=== PATIENT | female | born 1975 | race Caucasian/White ===

== ENCOUNTER 2019-06-10 16:20 | Observation (INO) ==
[2019-06-10] MEDS ORDERED: NS 1,000 ML IV ONE (19:30)
[2019-06-10 20:13] LABS: URINE SOURCE CLEAN CATCH
[2019-06-10 20:24] LABS: BILIRUBIN URINE NEGATIVE (NEGATIVE); BLOOD URINE TRACE (NEGATIVE); COLOR YELLOW; GLUCOSE URINE NEGATIVE (NEGATIVE); KETONE URINE NEGATIVE (NEGATIVE); LEUKOCYTES URINE NEGATIVE (NEGATIVE); NITRITE URINE POSITIVE (NEGATIVE); PH URINE 6.5; PROTEIN URINE TRACE mg/dL (NEGATIVE); SP GRAVITY URINE 1.018; TURBIDITY URINE HAZY (CLEAR); UROBILINOGEN URINE NORMAL (NORMAL)
[2019-06-10 20:25] LABS: UR EPITHELIAL CELLS <10 /HPF (<10); URINE BACTERIA 4+ /HPF; URINE RBC <10 /HPF (<10); URINE WBC <10 /HPF (<10)
[2019-06-10 20:30] LABS: BASO# 0.02 X1000 (0.0-0.2); BASO% 0.3 % (0.0-0.8); EOS# 0.13 X1000 (0.0-0.7); EOS% 2.1 % (0.0-10.0); HEMATOCRIT 39.5 % (37.0-47.0); HEMOGLOBIN 13.3 g/dL (12.0-16.0); LYMPH# 2.33 X1000 (1.2-3.4); LYMPH% 37.6 % (20.5-51.1); MCH 32.4 PG (27-31); MCHC 33.7 g/dL (33-37); MCV 96.1 FL (81-99); MONO% 6.5 % (1.7-9.3); MPV 9.6 FL (7.4-10.4); NEUT# 3.31 X1000 (1.4-6.5); NEUT% 53.5 % (42.2-75.2); PLT 245 X1000 (130-400); RBC 4.11 XMIL (4.2-5.4); RDW 15.3 % (11.5-14.5); WBC 6.19 X1000 (4.8-10.8)
[2019-06-10 20:50] LABS: ALB/GLOB RATIO 1.8; ALBUMIN 4.8 g/dL (3.5-5.0); CALCIUM 9.7 mg/dL (8.8-10.2); CREATININE 1.2 mg/dL (0.5-0.9); POTASSIUM 3.6 mmol/L (3.5-5.1); TOTAL BILIRUBIN 0.2 mg/dL (0.20-1.00); TOTAL PROTEIN 7.4 g/dL (6.3-8.3)
--- NOTE | 2019-06-10 21:09 | PROVIDER DOCUMENTATION ---
This chart was entered by Denise Chin Scribe, acting as scribe for Riley Waters MD. HPI-Rash/Wound/ReCheck - General Chief Complaint: Return/Recheck Stated Complaint: RETURN SEEN YESTERDAY HERE Time Seen by Provider: 06/10/19 19:18 Source: patient Allergies/Adverse Reactions: Allergies Allergy/AdvReac Type Severity Reaction Status Date / Time azithromycin [From Zithromax] Allergy Severe SWELLING Verified 06/09/19 11:01 codeine [Codeine] Allergy ITCHING Verified 06/09/19 11:01 buprenorphine HCl * AdvReac NAUSEA/VOMI Verified 06/09/19 11:01 [From Suboxone] TING naloxone HCl * AdvReac NAUSEA/VOMI Verified 06/09/19 11:01 [From Suboxone] TING Home Medications: Home Medication List Medication Instructions Recorded Confirmed Last Taken Type Levothyroxine Sodium 175 mcg PO DAILY 02/10/14 06/09/19 04/10/19 History Clonazepam [Klonopin] 1 mg PO BID 08/08/16 06/09/19 04/10/19 History Gabapentin [Neurontin] 800 mg PO TID 08/08/16 06/09/19 04/10/19 History Olanzapine [Zyprexa] 5 mg PO BID 08/08/16 06/09/19 04/10/19 History Umeclidinium Brm/Vilanterol Tr 1 each IH DAILY 08/08/16 06/09/19 04/10/19 History [Anoro Ellipta 62.5-25 Mcg INH] Triamcinolone Acetonide 15 gm TP 3-4XDAY PRN PRN 08/09/16 06/09/19 04/10/19 History Cyclobenzaprine [Flexeril] 5 mg PO TID #12 tablet 10/25/16 06/09/19 04/10/19 Rx Famotidine [Pepcid] 20 mg PO DAILY #30 tablet 10/25/16 06/09/19 04/10/19 Rx Hydrochlorothiazide 25 mg PO DAILY 10/25/16 06/09/19 04/10/19 History Ketorolac [Toradol] 10 mg PO Q6H PRN PRN #20 tablet 10/25/16 06/09/19 04/10/19 Rx Omeprazole [Prilosec] 20 mg PO DAILY #21 cap 11/20/17 06/09/19 04/10/19 Rx Ondansetron HCl [Zofran] 4 mg PO Q6HR PRN #12 tab 11/20/17 06/09/19 04/10/19 Rx Sucralfate [Carafate Liquid] 10 ml PO Q6HR #240 ml 11/20/17 06/09/19 04/10/19 Rx Sulfamethoxazole/Trimethoprim 2 ea PO BID #40 tab 03/07/19 06/09/19 04/10/19 Rx [Bactrim Ds Tablet] Losartan [Cozaar] 50 mg PO DAILY 06/09/19 06/09/19 04/10/19 History - History of Present Illness-Dermatology Nature of Presenting Problem: 44 yowf c/o recheck from yesterday, pt was dx w/rabdo and had to leave hospital to go home to care for a family member. pt is requesting tx. no other complaints. Onset/Duration: reports: other (yest) Timing: reports: still present Review of Systems - Adult - REVIEW OF SYSTEMS - ADULT Constitutional: reports: see HPI, other (rabdo dx yest, recheck today). denies: fever, fatique, night sweats Eyes: reports: no symptoms reported Ears, Nose, Mouth & Throat: reports: no symptoms reported Cardiovascular: reports: no symptoms reported Respiratory: reports: no symptoms reported Gastrointestinal: reports: no symptoms reported Genitourinary: reports: no symptoms reported Musculoskeletal: reports: no symptoms reported Integumentary: reports: no symptoms reported Neurological: reports: no symptoms reported Psychiatric: reports: no symptoms reported Endocrine: reports: no symptoms reported Hematologic/Lymphatic: reports: no symptoms reported Allergic/Immunologic: reports: no symptoms reported All Other Systems: Reviewed and Negative Past History - Adult - PAST MEDICAL HISTORY-ADULT Review of Records: reports: Nursing Assessment Review, Medications Reviewed, Social history reviewed & non-contributory. Major Childhood Illnesses: reports: denies history Cardiovascular: reports: cardiac disease, CHF, HTN Respiratory: reports: COPD Gastrointestinal: reports: denies history Obstetrical/Gynecological: reports: denies history Genitourinary: reports: denies history Musculoskeletal: reports: chronic pain, intervertebral disc disease, neck/back injury, other (fibromyalgia) Neurological: reports: CVA, Seizures/Epilepsy Psychiatric: reports: anxiety Endocrine/Immune: reports: thyroid disorder Other Conditions: reports: denies history - PRIOR SURGERIES/PROCEDURES Surgical/Procedure History: reports: hysterectomy, BTL, other (Emergency oophrectomy) - PRIOR HOSPITALIZATIONS Prior Hospitalizations: reports: for similar symptoms - IMMUNIZATION STATUS Childhood Immunizations: See Nurse Assessment Flu Vaccine: See Nurse Assessment - FAMILY HISTORY Family History: reviewed, not pertinent - SOCIAL HISTORY Smoking: cigarettes, less than 1 pack/day Provider spent 3-5 mins advising pt. on dangers of tobacco.: Discussed manners to quit use, and f/u contacts for add'l counseling. Substance Use: none presently/history of abuse (substance abuse hx), alcohol Alcohol Use Frequency: occasionally Physical Exam-General - PHYSICAL EXAM-ADULT Initial Vital Signs Reviewed: Yes - CONSTITUTIONAL General Appearance: appears well, alert, no apparent distress, obese. negative: lethargic, slow to respond, obtunded - EYES Eyes: PERRL/EOMI, pink conjunctivae - HEAD, EARS, NOSE, MOUTH & THROAT HENMT: normocephalic/atraumatic, moist mucous membranes - NECK Neck: non-tender, full range of motion, supple, normal inspection - RESPIRATORY Respiratory: chest non-tender, lungs clear, normal breath sounds - CARDIOVASCULAR Cardiovascular: normal peripheral pulses, regular rate, rhythm - GASTROINTESTINAL (ABDOMEN) Abdominal Exam: normal bowel sounds, non tender, soft - LYMPHATIC Lymphatic: no adenopathy - MUSCULOSKELETAL Back Exam: normal inspection, no CVA tenderness, no vertebral tenderness Extremity: normal range of motion, non-tender, normal inspection Peripheral Pulses: radial (R): 2+, radial (L): 2+ - SKIN Integumentary: normal color, normal turgor, warm/dry - NEUROLOGIC Neurologic: grossly normal, no motor/sensory deficits - PSYCHIATRIC Psych/Mental Status: normal mood/affect, normal thought content, normal thought process, oriented x 3 Progress - PLAN OF CARE/RESULTS Progress/Plan/Lab Results: Vital Signs - 8 hr 06/10/19 16:40 06/10/19 19:07 06/10/19 19:15 Temperature 98.1 F Pulse Rate 81 Respiratory Rate 18 Blood Pressure 167/111 191/128 O2 Sat by Pulse Oximetry 97 100 100 06/10/19 19:30 06/10/19 19:31 06/10/19 21:05 Temperature 98.3 F Pulse Rate 81 63 Respiratory Rate 18 18 Blood Pressure 173/138 177/115 O2 Sat by Pulse Oximetry 97 99 99 Laboratory Results - last 24 hr 06/10/19 06/10/19 06/10/19 20:04 20:04 20:04 WBC 6.19 RBC 4.11 L Hgb 13.3 Hct 39.5 MCV 96.1 MCH 32.4 H MCHC 33.7 RDW Std Deviation 15.3 H Plt Count 245 MPV 9.6 Neut % (Auto) 53.5 Lymph % (Auto) 37.6 Mcdonald % (Auto) 6.5 Eos % (Auto) 2.1 Baso % (Auto) 0.3 Neut # (Auto) 3.31 Lymph # (Auto) 2.33 Mcdonald # (Auto) 0.40 Eos # (Auto) 0.13 Baso # (Auto) 0.02 Sodium 138 Potassium 3.6 Chloride 98 Carbon Dioxide 27 Anion Gap 13 BUN 19 Creatinine 1.2 H Estimated GFR/1.73 m2 49 BUN/Creatinine Ratio 16 Glucose 87 Calculated Osmolality 277 Calcium 9.7 Total Bilirubin 0.20 AST 81 H ALT 43 H Alkaline Phosphatase 69 Creatine Kinase 4504 H Troponin T Total Protein 7.4 Albumin 4.8 Globulin 2.6 Albumin/Globulin Ratio 1.8 Urine Source CLEAN CATCH Urine Color YELLOW Urine Turbidity HAZY Urine pH 6.5 Ur Specific [place] 1.018 Urine Protein TRACE A Ur Glucose (Stick) NEGATIVE Ur Ketones (Stick) NEGATIVE Urine Blood TRACE A Urine Nitrite POSITIVE A Urine Bilirubin NEGATIVE Urobilinogen Dipstick NORMAL Urine Leukocytes NEGATIVE Urine WBC (Auto) <10 Urine RBC (Auto) <10 U Epithel Cells (Auto) <10 Urine Bacteria (Auto) 4+ 06/10/19 20:04 WBC RBC Hgb Hct MCV MCH MCHC RDW Std Deviation Plt Count MPV Neut % (Auto) Lymph % (Auto) Mcdonald % (Auto) Eos % (Auto) Baso % (Auto) Neut # (Auto) Lymph # (Auto) Mcdonald # (Auto) Eos # (Auto) Baso # (Auto) Sodium Potassium Chloride Carbon Dioxide Anion Gap BUN Creatinine Estimated GFR/1.73 m2 BUN/Creatinine Ratio Glucose Calculated Osmolality Calcium Total Bilirubin AST ALT Alkaline Phosphatase Creatine Kinase Troponin T 0.019 Total Protein Albumin Globulin Albumin/Globulin Ratio Urine Source Urine Color Urine Turbidity Urine pH Ur Specific [place] Urine Protein Ur Glucose (Stick) Ur Ketones (Stick) Urine Blood Urine Nitrite Urine Bilirubin Urobilinogen Dipstick Urine Leukocytes Urine WBC (Auto) Urine RBC (Auto) U Epithel Cells (Auto) Urine Bacteria (Auto) Orders Category Date Time Status CBC WITH ELECTRONIC DIFF [HEME] Stat Lab 06/10/19 20:04 Completed CK TOTAL [CHEM] Stat Lab 06/10/19 20:04 Completed COMPREHENSIVE METABOLIC PANEL [CHEM] Stat Lab 06/10/19 20:04 Completed TROPONIN T Stat Lab 06/10/19 20:04 Completed URINALYSIS [URINALYSIS] Stat Lab 06/10/19 20:04 Completed URINE DRUG SCREEN Stat Lab 06/10/19 21:06 Ordered 0.9% Sodium Chloride Inj [Ns] 1,000 ml Med 06/10/19 19:30 Discontinued IV 999 mls/hr EKG [EKG] Stat Ther 06/10/19 19:32 Ordered Pt left AMA yesterday, repeat labs show she is still in rhabdo with elevated Cr, will admit for hydration, spoke with Dr. Cummings and he will admit Result Diagrams: 06/10/19 20:04 06/10/19 20:04 Departure - Departure Date of Disposition Decision: 06/10/19 Time of Disposition Decision: 21:08 DIAGNOSIS: Rhabdomyolysis Qualifiers: Rhabdomyolysis type: non-traumatic Qualified Code(s): M62.82 - Rhabdomyolysis Disposition: ADMITTED INPATIENT 09 Certified Medical Emergency: Emergent Condition: Stable Referrals and Follow-Ups: Sg Bowman CRNP [Primary Care Provider] - - Critical Care Note This patient required my direct & personal management of CC.: No Attestation - Physician/ SHARMAINE Attestation Patient care was provided by Advanced Practice Provider:: No The physician spent face to face time with patient:: Yes Advanced Practice Provider documentation review:: Supervising physician onsite and consulted in the evaluation and care of this patient. The physician did have a face to face encounter with the patient. This chart was documented by the indicated scribe, (Denise Chin Scribe) and accurately reflects the services I performed and decisions made by me, Riley Waters MD, as attested by the provider's signature.
[2019-06-10] MEDS ORDERED: APRESOLINE IV ONE (21:12)
[2019-06-10] MEDS ORDERED: CATAPRES PO ONE (21:41)
[2019-06-10] MEDS ORDERED: ROCEPHIN 1 GM in NS 50 ML IV SCH (21:45)
[2019-06-10 21:46] LABS: UR AMPHETAMINES QUAL PRESUMPTIVE POSITIVE (NONE DETECT); UR BARBITUATES QUAL NONE DETECTED (NONE DETECT); UR BENZODIAZEPIN QUAL NONE DETECTED (NONE DETECT); UR CANNABINOIDS QUAL NONE DETECTED (NONE DETECT); UR COCAINE QUAL NONE DETECTED (NONE DETECT); UR METHADONE QUAL NONE DETECTED (NONE DETECT); UR OPIATES QUAL NONE DETECTED (NONE DETECT); UR OXYCODONE QUAL NONE DETECTED (NONE DETECT); UR PCP QUAL NONE DETECTED (NONE DETECT)
[2019-06-10] MEDS ORDERED: ROCEPHIN 1 GM in NS 50 ML IV ONE (21:48)
[2019-06-10] MEDS ORDERED: KLOR-CON PO ONE (22:37)
[2019-06-10] MEDS ORDERED: NORCO-7.5 PO PRN (23:16)
[2019-06-10] MEDS ORDERED: ZOFRAN IV PRN (23:16)
[2019-06-10] MEDS ORDERED: TYLENOL PO PRN (23:16)
[2019-06-11] MEDS: KLONOPIN PO SCH ×2 (01:49→10:40)
[2019-06-11] MEDS: LOVENOX SUBQ SCH (01:50)
[2019-06-11] MEDS: NS 1,000 ML IV SCH ×5 (03:25→17:58)
[2019-06-11] MEDS: APRESOLINE IV PRN (03:25)
--- NOTE | 2019-06-11 03:50 | HISTORY AND PHYSICAL ---
CHIEF COMPLAINT: Followup from visit yesterday. HPI: Ms. Sanchez is a 44-year-old female who came into the emergency room yesterday with a complaint of she felt as if she was having slurring of speech, generalized weakness. She came in and was found to have rhabdomyolysis. She left against medical advice for personal reasons, so she came back in today for admission. Her creatinine is mildly elevated at 1.2, which is the same as it was yesterday. She has a baseline creatinine of 0.9. Her CKs were elevated at 4504, which is slightly down from yesterday. She denies any type of intense work or heavy lifting of any type. States that she did fall a few days ago, so I am unsure the exact etiology of the rhabdo. Looking back over her history, it looks like she has chronically elevated CKs, all the way back to 2016. They were over 1000. She does have a past medical history of bipolar disease. Her UDS was positive for amphetamines, however, the patient states that she does not take any illicit drugs. She also states that she has not been taking any of her medications for hypertension or her bipolar disorder or hypothyroidism. At any rate, she will be admitted for treatment of hypertension, rhabdomyolysis and acute kidney injury. PAST MEDICAL HISTORY: See HPI. PREVIOUS SURGICAL HISTORY: Total hysterectomy. SOCIAL HISTORY: Lives at home. Denies alcohol. States she does smoke 1/3 of a pack a day. Also denies illicit drugs, however, looking back at her past medical history it looks like she drank heavily for years, started drinking at age 13, apparently stopped 2 years ago. Drinks occasionally. Stated that she has used oxycodone, usually snorting it. She has tried crystal meth in the past via IV. But, again she denies this at this time. FAMILY HISTORY: Positive for hypertension and coronary artery disease. ALLERGIES: AZITHROMYCIN, CODEINE, SUBOXONE. HOME MEDICATIONS: Denies any at this time. REVIEW OF SYSTEMS: A 14 point review of systems was conducted with the patient. States that she is slurring her speech, however, I could not tell this on exam. States that she is having generalized weakness and generally does not feel well. She has chronic neck and back pain which she complains of. Other pertinent positives are listed above in the HPI. All other systems were reviewed and found to be negative. PHYSICAL EXAMINATION: VITAL SIGNS: Temperature 98.3, pulse 63, respirations 18, blood pressure 177/115, oxygen saturation 99% on room air. GENERAL: A 44-year-old female, somewhat tearful on examination. Alert and oriented x3. Daughter is at bedside. HEENT: Head is atraumatic, normocephalic. Pupils equal, round, react to light. Extraocular eye movements intact. Sclera is anicteric. Conjunctiva are pink. Oral mucosa is dry. NECK: Supple. No JVD. No thyromegaly. Trachea is midline. No cervical lymphadenopathy. CARDIAC: S1, S2 appreciated. No murmurs, gallops, rubs. LUNGS: Clear to auscultation bilaterally. No rhonchi, wheezes, rales. Symmetric rise and fall respirations. ABDOMEN: Soft, nondistended, nontender. Bowel sounds present all 4 quadrants, normoactive. No pulsatile masses. No organomegaly. EXTREMITIES: No clubbing, cyanosis or edema. 2+ pedal pulses bilaterally. GENITOURINARY: No bladder distention. Patient voids, otherwise deferred. NEUROLOGICAL: Alert and oriented x3. No focal motor deficits. Otherwise nonfocal examination. DIAGNOSTIC DATA: CT of her head yesterday showed no acute intracranial process. LABORATORY DATA: CBC within normal limits. Chemistry within normal limits other than a creatinine of 1.2. AST 81, ALT 43. CK 4504. Urine nitrite positive, with 4+ bacteria, trace hematuria. Toxicology positive for amphetamines. ASSESSMENT AND PLAN: 1. Rhabdomyolysis likely related to drug use, however, patient denies this. Will treat with fluids, recheck CKs tomorrow morning. 2. Hypertension. Patient states that she has not been taking her blood pressure medications. Will start amlodipine 5 mg p.o. b.i.d. Will give hydralazine p.r.n. 3. Methamphetamine use. Aware. At one point the patient had taken Klonopin 1 mg b.i.d. Will restart this. Continue to monitor patient for any signs of withdrawal. 4. Urinary tract infection. Will give Keflex 500 mg q.12h. 5. Further recommendations based on patient's clinical course. Dictated by MIKE Polk for China Cummings MD cc: MIKE Polk MD Eric Crampsey, CRNP Independent exam and assessment done on patient at bedside with CAR RENTAL MANAGER. Discussed above plan of care with CAR RENTAL MANAGER and Pt. at bedside. Once CK <3000 and asymptomatic can go home. MTDD
[2019-06-11] MEDS: SYNTHROID PO SCH ×2 (05:57→06:36)
[2019-06-11] MEDS ORDERED: PRILOSEC PO SCH (09:00)
[2019-06-11] MEDS ORDERED: ZYPREXA PO SCH (09:00)
[2019-06-11] MEDS ORDERED: KEFLEX PO SCH (09:00)
[2019-06-11] MEDS: NORVASC PO SCH ×2 (10:40→20:17)
[2019-06-11 12:58] LABS: BASO# 0.03 X1000 (0.0-0.2); BASO% 0.6 % (0.0-0.8); EOS# 0.16 X1000 (0.0-0.7); HEMATOCRIT 39.7 % (37.0-47.0); IMM GRAN# 0.02 X1000 (0.0-0.04); IMM GRAN% 0.4 % (0.0-0.5); LYMPH# 2.33 X1000 (1.2-3.4); LYMPH% 43.7 % (20.5-51.1); MCH 31.7 PG (27-31); MCHC 32.7 g/dL (33-37); MCV 96.8 FL (81-99); MONO# 0.33 X1000 (0.11-0.59); MONO% 6.2 % (1.7-9.3); MPV 9.7 FL (7.4-10.4); NEUT# 2.46 X1000 (1.4-6.5); NEUT% 46.1 % (42.2-75.2); PLT 252 X1000 (130-400); RDW 15.7 % (11.5-14.5); WBC 5.33 X1000 (4.8-10.8)
[2019-06-11 13:53] LABS: CALCIUM 9.2 mg/dL (8.8-10.2); CREATININE 1.1 mg/dL (0.5-0.9)
--- NOTE | 2019-06-11 14:05 | ECHO REPORT ---
ORDER DATE: 06/11/2019 INTERPRETING PHYSICIAN: Dr. Zohaib Mann. ECHOCARDIOGRAPHIC MEASUREMENTS: 1. Interventricular septum 0.9. 2. Left ventricular posterior wall 0.9. 3. Diastolic diameter 5.2. 4. Left atrium 3.5. 5. Aorta 2.9 cm. SUMMARY OF THE 2-DIMENSIONAL IMAGIN. Technically suboptimal study. Poor acoustic window. 2. Pulmonic valve not well visualized. 3. Aortic valve leaflets are trileaflet. 4. Mitral valve was normal. Left ventricular ejection fraction estimated at 50% to 55%. 5. Endocardium not well visualized in all views. 6. There is mild mitral regurgitation. 7. Mild tricuspid regurgitation. Peak velocity across the tricuspid valve less than 2 m/sec. 8. Peak velocity across the aortic valve less than 2 m/sec by Doppler studies. There is no aortic stenosis or regurgitation. 9. Anterior echo-free space was noted, which is granular, suggestive of pericardial fat pad. Cannot rule out trace effusion. There is also posterior echo-free space. There is no evidence of tamponade. Cannot rule out [id number] pericardial effusion. cc: MD Taurus Winter CRNP
--- NOTE | 2019-06-11 15:29 | EKG Report ---
Test Performed on : 06/11/2019 3:21:00 PM Test Reason : bradycardia Blood Pressure : / mmHG Vent. Rate : 050 BPM Atrial Rate : 050 BPM P-R Int : 138 ms QRS Dur : 086 ms QT Int : 496 ms P-R-T Axes : 048 030 007 degrees QTc Int : 452 ms Critical Test Result: Low HR Sinus bradycardia. Low voltage QRS Cannot rule out Anterior infarct (cited on or before 09-JUN-2019) Abnormal ECG When compared with ECG of 09-JUN-2019 10:42, (Unconfirmed) Vent. rate has decreased BY 31 BPM QT has shortened Confirmed by Adebayo ALONSO, P.J.M ([id number]) on 06/13/2019 2:54:50 PM
[2019-06-11] MEDS ORDERED: SODIUM CHLORIDE 0.9% INJ ONE (16:45)
[2019-06-11] MEDS ORDERED: SYNTHROID IV ONE (16:45)
[2019-06-11] MEDS ORDERED: SODIUM CHLORIDE 0.9% INJ PRN (16:54)
[2019-06-11] MEDS ORDERED: ATIVAN IV PRN (17:07)
[2019-06-11] MEDS: SOLU-CORTEF IV SCH (17:14)
[2019-06-11] MEDS ORDERED: SODIUM CHLORIDE 0.9% INJ SCH (17:15)
[2019-06-11] MEDS ORDERED: CYTOMEL PO ONE ×2 (17:18→18:00)
[2019-06-11] MEDS: MAXIPIME 1 GM in NS 50 ML IV SCH (17:23)
[2019-06-11 18:42] LABS: CK-MB 26.31 ng/mL (0.0-5.0)
[2019-06-11] MEDS: HUMULIN R SUBQ SCH (20:17)
[2019-06-12] MEDS: LOVENOX SUBQ SCH ×2 (00:29→22:03)
[2019-06-12] MEDS: SOLU-CORTEF IV SCH ×3 (00:29→16:24)
[2019-06-12] MEDS: NS 1,000 ML IV SCH ×3 (00:29→15:46)
--- NOTE | 2019-06-12 03:42 | PROGRESS NOTE ---
DATE: 06/11/2019 SUBJECTIVE: The patient is lethargic and will not awaken. Her TSH was noted to be elevated at 246.9. In light of this finding, the patient is being transferred to the ICU. OBJECTIVE: Vital Signs: Temperature 97.6 degrees, blood pressure 151/90, heart rate 54, respirations 12, O2 saturation 96% on 2 L nasal cannula. General: This is a morbidly obese female, lying in bed, lethargic. Heart: S1, S2, normal. Bradycardic. Lungs: Equal air entry bilaterally. Clear to auscultation. Abdomen: Positive bowel sounds. Soft, obese, nontender, nondistended. Extremities: Trace pedal edema bilaterally. No calf tenderness. Peripheral pulses palpable. Neurologic: The patient is lethargic. She does awaken when her name is called. She is able to move all 4 extremities. She responds to painful stimuli. LABS: White blood cell count 5.3, hemoglobin 13, hematocrit 39, platelets 252,000. Sodium 144, potassium 4, chloride 104, CO2 26, BUN 17, creatinine 1.1, glucose 91, CK 2761. TSH 246, free T4 0.13, T4 1.0, cortisol 8.7. Echocardiogram reveals an ejection fraction of 50 to 55 percent. Mild tricuspid regurgitation. Mild mitral regurgitation. Small pericardial effusion. ASSESSMENT AND PLAN: 1. Myxedema coma. The patient will be transferred to the ICU. We will start intravenous Synthroid and Cytomel. The patient will also be started on hydrocortisone 100 mg intravenously every 8 hours. The patient will be monitored closely in the ICU setting. 2. Rhabdomyolysis. Likely secondary to the underlying thyroid dysfunction. The CK is slowly improving. Continue with intravenous fluid hydration. 3. Asymptomatic bradycardia. Likely secondary to the patient's thyroid dysfunction. We will continue to monitor closely. 4. Urinary tract infection. The patient is on cefepime. Will await the results of the urine culture. 5. Morbid obesity. Aware. 6. Hypertension. We will cover the patient with p.r.n. hydralazine. 7. Deep vein thrombosis prophylaxis. The patient will be started on Lovenox. cc: Florence Liang MD [facility] HEALTH SYSTEMCarie
[2019-06-12 05:26] LABS: ALLEN TEST YES; BE 0.2 mmoll (-3.0-3.0); BLOOD TYPE ARTERIAL; METHB 0.4 % (0.0-1.5); O2(CT) 19.7 mL/dL (15.0-23.0); PO2(98.6) 99 mmHg (60-100); SAMPLE BLOOD; SAO2 96.7 % (95.0-100.0); THB 14.5 g/dL (11.5-17.4); pH(98.6) 7.32 (7.35-7.45)
[2019-06-12 05:27] LABS: MODALITY CANNULA; PCO2(98.6) 53 mmHg (35-45)
[2019-06-12] MEDS: MAXIPIME 1 GM in NS 50 ML IV SCH ×2 (06:00→16:24)
[2019-06-12] MEDS: SYNTHROID IV SCH (06:00)
[2019-06-12] MEDS: PROTONIX IV SCH (06:00)
[2019-06-12] MEDS: CYTOMEL PO SCH ×3 (06:01→22:03)
[2019-06-12 06:20] LABS: BASO# 0.01 X1000 (0.0-0.2); BASO% 0.2 % (0.0-0.8); EOS# 0.01 X1000 (0.0-0.7); EOS% 0.2 % (0.0-10.0); HEMATOCRIT 42.5 % (37.0-47.0); HEMOGLOBIN 13.8 g/dL (12.0-16.0); IMM GRAN# 0.02 X1000 (0.0-0.04); IMM GRAN% 0.3 % (0.0-0.5); LYMPH# 0.66 X1000 (1.2-3.4); MCH 31.7 PG (27-31); MCHC 32.5 g/dL (33-37); MCV 97.7 FL (81-99); MONO# 0.11 X1000 (0.11-0.59); MONO% 1.8 % (1.7-9.3); MPV 9.6 FL (7.4-10.4); NEUT% 86.5 % (42.2-75.2); PLT 258 X1000 (130-400); RBC 4.35 XMIL (4.2-5.4); RDW 15.7 % (11.5-14.5); WBC 6.01 X1000 (4.8-10.8)
[2019-06-12] MEDS: HUMULIN R SUBQ SCH ×4 (06:28→20:50)
[2019-06-12 06:38] LABS: CHOLESTEROL 354 mg/dL (0-200); HDL 83 mg/dL (45-65); LDL 255 mg/dL; TRIGLYCERIDES 78 mg/dL (35-135); VLDL 16 mg/dL
[2019-06-12 06:47] LABS: AGAP 14; ALB/GLOB RATIO 1.7; ALBUMIN 4.4 g/dL (3.5-5.0); ALKALINE PHOSPHATASE 64 U/L (32-104); BUN 13 mg/dL (8-22); CALCIUM 8.6 mg/dL (8.8-10.2); CHLORIDE 103 mmol/L (98-107); COSMO 281; CREATININE 0.9 mg/dL (0.5-0.9); ESTIMATED GFR > 60; GLUCOSE 134 mg/dL (70-104); GOT 60 U/L (10-30); GPT 36 U/L (10-36); POTASSIUM 4.6 mmol/L (3.5-5.1); SODIUM 140 mmol/L (136-145); TCO2 23 mmol/L (25-35); TOTAL BILIRUBIN < 0.15 mg/dL (0.20-1.00)
[2019-06-12 06:55] LABS: LYMPHS 24 % (21-51); MONO 2 % (1-9); SEGS 74 % (42-75)
--- NOTE | 2019-06-12 07:27 | Diag Imaging Result Doc PS360 ---
EXAM: CHEST-1 VIEW HISTORY: dyspnea TECHNIQUE: Single view COMPARISON: 06/09/2019 FINDINGS: Poor inspiratory effort. The heart is not enlarged. The vessels are not distended. There are no infiltrates. No effusion identified. There has been surgery to the lower neck. IMPRESSION: Negative exam. Electronically signed by Cayden Burch 06/12/2019 7:25 AM
--- NOTE | 2019-06-12 07:30 | EKG Report ---
Test Performed on : 06/12/2019 07:12:33 AM Test Reason : bradycardia Blood Pressure : / mmHG Vent. Rate : 066 BPM Atrial Rate : 066 BPM P-R Int : 134 ms QRS Dur : 086 ms QT Int : 476 ms P-R-T Axes : 049 003 140 degrees QTc Int : 499 ms Normal sinus rhythm. with sinus arrhythmia. T wave abnormality, consider anterior ischemia Abnormal ECG When compared with ECG of 11-JUN-2019 15:21, (Unconfirmed) No significant change was found Confirmed by Adebayo ALONSO, P.J.M ([id number]) on 06/13/2019 2:55:41 PM
[2019-06-12] MEDS: NORVASC PO SCH ×2 (08:27→22:03)
--- NOTE | 2019-06-12 09:41 | Diag Imaging Result Doc PS360 ---
EXAM: CT HEAD W/O CONTRAST HISTORY: encephalopathy TECHNIQUE: CT head without contrast COMPARISON: 06/09/2019 FINDINGS: No parenchymal hemorrhage. No epidural or subdural hematoma. No subarachnoid hemorrhage. No mass identified on this noncontrasted exam. No hydrocephalus. No sinus opacification. IMPRESSION: No hemorrhage. Negative brain CT without contrast. This exam was performed using automated exposure control, adjustment of mA or kV according to patient size, and/or use of iterative reconstruction technique. Electronically signed by Cayden Burch 06/12/2019 9:38 AM
--- NOTE | 2019-06-12 10:59 | PROGRESS NOTE ---
DATE: 06/12/2019 INTERVAL HISTORY: No acute events overnight. Ms. Sanchez's oxygen levels were decreasing at the time when she was asleep, so it was increased to up to 5 L per minute. Ms. Sanchez did not have any other acute events. SUBJECTIVE: She is feeling tired. Denies any complaint. Her echocardiogram yesterday had a normal ejection fraction and mild pericardial effusion. She does have hypercholesterolemia. Her urine culture was never drawn. Subjectively, she states she may be feeling slightly better but still feels very tired and lethargic. VITALS: Temperature 97.6 degrees, pulse 62, respiratory rate 14, blood pressure 120/79, saturating 100% on 5 L nasal cannula. PHYSICAL EXAMINATION: She is not in acute distress. She appears tired. She has marked periorbital edema, obesity. I could not appreciate or palpate her goiter appropriately because of body position. Oral cavity is dry. Lungs: Air entry bilaterally equal. No wheeze, rhonchi, or crackles. Cardiovascular: S1, S2 normal. No murmur, rub, or gallop. Examination was limited because of body habitus. Abdomen: Obese, soft, and nontender. She has a urine catheter. No lower extremity edema. She is drowsy but arousable. She is able to raise both upper and lower extremities above ground level. I could not elicit reflexes properly. LABS: Suggestive of no leukocytosis. Normal hemoglobin, normal platelet count. She does have mild acidosis. Her pH is 7.32 and I will get a repeat pH in the afternoon time. Her TSH remained consistently elevated. Her acute kidney injury has improved. ASSESSMENT AND PLAN: 1. Myxedema coma, likely because of noncompliance with levothyroxine contributing to her bradycardia and on presentation. Continue intravenous levothyroxine as well as liothyronine or Cytomel. Also continue patient on intravenous hydrocortisone to avoid adrenal insufficiency. 2. Rhabdomyolysis, left secondary to significant hypothyroidism. Continue intravenous fluids and I will decrease the fluid rate. 3. Asymptomatic bradycardia. We will address underlying hypothyroidism. 4. Suspected urinary tract infection. Urine culture was not collected. I will advise the nurse to get a urine culture again. I will continue her on broad-spectrum intravenous antibiotics. 5. Morbid obesity and hypertension are currently stable. Continue patient on Lovenox for deep venous thrombosis prophylaxis. 6. Hyperlipidemia. Considering current rhabdomyolysis, I am holding anticholesterol medications for now. DISPOSITION: Patient's condition is critical. I will continue to monitor her inside ICU. Plan of care discussed with her. All questions have been answered. cc: Basilio Hernandez MD MTDD
[2019-06-12] MEDS: APRESOLINE IV PRN (12:07)
[2019-06-12 14:50] LABS: ALLEN TEST YES; BLOOD TYPE ARTERIAL; HCO3-(ACT) 26.4 mmoll (20.0-26.0); METHB 0.4 % (0.0-1.5); O2(CT) 19.1 mL/dL (15.0-23.0); PCO2(98.6) 40 mmHg (35-45); PO2(98.6) 86 mmHg (60-100); SAMPLE BLOOD; SAO2 96.9 % (95.0-100.0); THB 14.1 g/dL (11.5-17.4); pH(98.6) 7.43 (7.35-7.45)
[2019-06-12 14:51] LABS: MODALITY CANNULA
[2019-06-13] MEDS: NS 1,000 ML IV SCH ×5 (01:00→17:11)
[2019-06-13] MEDS: SOLU-CORTEF IV SCH ×3 (01:31→20:09)
[2019-06-13] MEDS: LOVENOX SUBQ SCH ×2 (01:31→20:09)
[2019-06-13 04:53] LABS: ALLEN TEST YES; BE 5.3 mmoll (-3.0-3.0); BLOOD TYPE ARTERIAL; METHB 0.6 % (0.0-1.5); O2(CT) 17.7 mL/dL (15.0-23.0); PCO2(98.6) 46 mmHg (35-45); PO2(98.6) 101 mmHg (60-100); SAMPLE BLOOD; SAO2 97.1 % (95.0-100.0); pH(98.6) 7.43 (7.35-7.45)
[2019-06-13 04:54] LABS: MODALITY BI PAP
[2019-06-13] MEDS: SYNTHROID IV SCH (06:01)
[2019-06-13] MEDS: MAXIPIME 1 GM in NS 50 ML IV SCH ×2 (06:01→20:09)
[2019-06-13] MEDS: PROTONIX IV SCH (06:01)
[2019-06-13] MEDS: CYTOMEL PO SCH ×3 (06:02→23:45)
[2019-06-13] MEDS: HUMULIN R SUBQ SCH ×4 (06:02→20:52)
[2019-06-13 07:22] LABS: AGAP 13; BUN 9 mg/dL (8-22); CALCIUM 8.1 mg/dL (8.8-10.2); CHLORIDE 104 mmol/L (98-107); CK TOTAL 1177 U/L (24-173); COSMO 280; CREATININE 0.8 mg/dL (0.5-0.9); ESTIMATED GFR > 60; GLUCOSE 97 mg/dL (70-104); POTASSIUM 3.6 mmol/L (3.5-5.1); SODIUM 141 mmol/L (136-145); TCO2 24 mmol/L (25-35)
[2019-06-13] MEDS: NORVASC PO SCH ×2 (09:19→20:09)
[2019-06-13] MEDS: ANORO ELLIPTA 62.5-25 MCG INH INH SCH ×2 (17:46→17:59)
--- NOTE | 2019-06-13 19:29 | PROGRESS NOTE ---
DATE: 06/13/2019 SUBJECTIVE: The patient is alert and oriented x4. She states that she is hungry. OBJECTIVE: Vital Signs: Temperature 98 degrees, blood pressure 150/83, heart rate 97, respirations 17, O2 saturation 98% on room air. General: This is a morbidly obese female sitting up in bed in no acute distress. Heart: S1, S2 normal. Tachycardic. Lungs: Clear to auscultation bilaterally. Abdomen: Positive bowel sounds. Soft, nontender, nondistended. Extremities: No edema. No cyanosis. Neurologic: The patient is alert and oriented x4. LABS: Sodium 141, potassium 3.6, chloride 104, CO2 24. BUN 9, creatinine 0.8, glucose 97. TSH 118. ASSESSMENT AND PLAN: 1. Myxedema coma. This is likely secondary to noncompliance with Synthroid. We will continue on intravenous levothyroxine, as well as Cytomel. We will also continue with intravenous hydrocortisone. The patient has been counseled about the importance of medication compliance. 2. Rhabdomyolysis. Slowly improving. Continue with intravenous fluids. Will decrease the rate. 3. Morbid obesity. Aware. 4. Anxiety disorder. We will restart the patient's Klonopin. 5. Hypertension. Continue on Norvasc. 6. Deep vein thrombosis prophylaxis. Continue on Lovenox. cc: Florence Liang MD
[2019-06-14] MEDS: NS 1,000 ML IV SCH ×2 (01:57→08:25)
[2019-06-14] MEDS: SOLU-CORTEF IV SCH ×2 (05:24→11:34)
[2019-06-14 06:38] LABS: HEMATOCRIT 36.5 % (37.0-47.0); HEMOGLOBIN 11.6 g/dL (12.0-16.0); MCH 31.7 PG (27-31); MCHC 31.8 g/dL (33-37); MCV 99.7 FL (81-99); MPV 9.8 FL (7.4-10.4); RBC 3.66 XMIL (4.2-5.4); RDW 15.8 % (11.5-14.5); WBC 7.08 X1000 (4.8-10.8)
[2019-06-14] MEDS: PROTONIX IV SCH (06:50)
[2019-06-14] MEDS: SYNTHROID IV SCH (06:50)
[2019-06-14] MEDS: CYTOMEL PO SCH (06:50)
[2019-06-14 07:03] LABS: AGAP 10; BUN 12 mg/dL (8-22); CALCIUM 8.3 mg/dL (8.8-10.2); CHLORIDE 104 mmol/L (98-107); CK TOTAL 576 U/L (24-173); COSMO 281; CREATININE 0.9 mg/dL (0.5-0.9); ESTIMATED GFR > 60; GLUCOSE 105 mg/dL (70-104); POTASSIUM 3.4 mmol/L (3.5-5.1); SODIUM 141 mmol/L (136-145); TCO2 27 mmol/L (25-35)
[2019-06-14] MEDS ORDERED: KLOR-CON PO ONE (07:04)
[2019-06-14] MEDS: HUMULIN R SUBQ SCH ×2 (07:30→11:33)
[2019-06-14] MEDS: ANORO ELLIPTA 62.5-25 MCG INH INH SCH (07:30)
[2019-06-14] MEDS: NORVASC PO SCH (08:23)
[2019-06-14] MEDS: MAXIPIME 1 GM in NS 50 ML IV SCH (08:23)
[2019-06-14 11:27] VITALS: BP 151/90
--- NOTE | 2019-06-24 17:19 | DISCHARGE SUMMARY ---
ADMISSION DATE: 06/10/2019 DISCHARGE DATE: 06/14/2019 FINAL DISCHARGE DIAGNOSES: 1. Myxedema coma. 2. Rhabdomyolysis secondary to myxedema coma. 3. Hypothyroidism. 4. Morbid obesity. 5. Anxiety disorder. 6. Hypertension. HOSPITAL COURSE: Ms. Sanchez is a 44-year-old female with a history of hypothyroidism, hypertension and morbid obesity who presented to the ER with a chief complaint of generalized weakness and confusion. On admission, a head CT was done that was negative. An echocardiogram was also performed which revealed an ejection fraction of 50 to 55 percent. The patient's thyroid panel was checked, and the patient was noted to have a TSH of 246.9. In light of this finding, the patient was transferred to the ICU, and started on treatment for myxedema coma, which included stress dose steroids, IV Synthroid, and Cytomel. The patient remained in the ICU for several days with thyroid therapy and steroid therapy. The patient improved clinically, and was noted to be back to her baseline from a mental status point of view. The patient was ultimately transferred to [facility]. Upon further questioning, the patient stated that she had been off of her thyroid medication for at least 6 months. On 06/14/2019, the patient stated that she no longer wanted to stay in the hospital, and decided that she wanted to leave the hospital against medical advice. The patient was advised against leaving against medical advice before her treatment was complete. The patient was told that she runs the risk of severe disability, and even if she left the hospital before her treatment was complete. The patient stated that she was willing to take the risk, and stated that she was leaving the hospital against medical advice. The patient was advised to continue to take her thyroid medication as scheduled, and if she had any further symptoms to return to the ER. cc: Florence Liang MD
== END 2019-06-14 12:08 | disposition left against medical advice (07) ==
LOC: ED 16:20 → 4N 16:20 → SUATTDRO 23:02 → ICU 06-11 17:54 → 2N 06-13 14:59
PROVIDERS: ATTEND Internal Medicine